=== PATIENT | female | born 1945 | race Caucasian/White ===

== ENCOUNTER 2016-10-26 15:45 | Outpatient (CLI) | payer MEDICARE ==
[2016-10-26 16:22] LABS: ALT (SGPT) 20 U/L (0-55); AST (SGOT) 22 U/L (5-34); Alkaline Phosphatase 49 U/L (40-150); Anion Gap 12 mmol/L (10-20); BUN (Urea Nitrogen) 31 mg/dL (9.8-20.1); Bilirubin, Total 0.2 mg/dL (0.2-1.2); Calc. Creatinine Clearance 0 mL/min (70-130); Calcium 9.1 mg/dL (7.8-10.44); Carbon Dioxide 26 mmol/L (23-31); Chloride 107 mmol/L (98-107); Estimated GFR-MDRD 67; Globulin 2.8 g/dL (2.4-3.5); Protein, Total 6.9 g/dL (5.8-8.1)
[2016-10-26 16:52] LABS: Hematocrit 37.9 % (36.0-47.0); Mean Platelet Volume 6.4 fL (7.4-10.4); Red Blood Cell (RBC) Count 4.07 mill/uL (4.20-5.40); White Blood Cell (WBC) Count 6.8 thou/uL (4.8-10.8)
[2016-10-26 17:18] LABS: Neutrophil 54 % (42-75)
== END 2016-10-26 15:46 ==
LOC: HPCALD 15:45
PROVIDERS: ATTEND Family Medicine
DX: R53.81 Other malaise (principal)
CPT/HCPCS: 36415; 80053; 84443; 85025

== ENCOUNTER 2017-02-15 09:32 | Outpatient (CLI) | payer MEDICARE, OTHER | END 2017-02-15 09:33 | disposition home or self-care (01) | LOC: HPCALD 09:32 | PROVIDERS: ATTEND Physician Assistant | DX: N76.0 Acute vaginitis (principal) | CPT/HCPCS: 87480; 87510; 87660 ==

== ENCOUNTER 2018-06-18 16:22 | Emergency (ER) | payer MEDICARE, OTHER ==
--- NOTE | 2018-06-18 18:43 | CT ---
CT OF THE CERVICAL SPINE 06/18/18 DICTATION CUT OFF POS: HOME
--- NOTE | 2018-06-18 18:46 | CT ---
CT OF THE BRAIN WITHOUT CONTRAST: 06/18/[address] shows normal sized ventricles for age. There is no shift. No intracranial bleeding o r extra-axial hematoma was seen. A small soft tissue laceration or defect is seen in the left posteri or parieto-occipital region. The underlying skull appears normal. There are no skull fractures. The s phenoid sinus is clear as are the mastoid air cells. No intracranial bleeding, mass or edema was foun d. IMPRESSION: No acute intracranial finding. POS: HOME
== END 2018-06-18 17:29 | disposition home or self-care (01) ==
LOC: BURERS 16:22
DX: S06.0X0A Concussion without loss of consciousness, initial encounter (principal); W01.0XXA Fall on same level from slipping, tripping and stumbling without subsequent striking against object, initial encounter
CPT/HCPCS: 70450; 72125

== ENCOUNTER 2019-05-24 14:27 | Emergency (ER) | payer MEDICARE, OTHER ==
[2019-05-24] MEDS ORDERED: AMOXicillin 250 MG CAP ONE (14:46)
== END 2019-05-24 15:03 | disposition home or self-care (01) ==
LOC: BURERS 14:27
DX: S81.852A Open bite, left lower leg, initial encounter (principal); S81.812A Laceration without foreign body, left lower leg, initial encounter; W54.0XXA Bitten by dog, initial encounter
CPT/HCPCS: 99283

== ENCOUNTER 2020-11-10 12:59 | Emergency (ER) | payer MEDICARE, OTHER ==
[2020-11-10] MEDS ORDERED: Amoxicillin/Potassium Clav 875 MG TAB ONE (13:13)
[2020-11-10] MEDS ORDERED: Boostrix 0.5 ML (Tdap) VIAL ONE (13:13)
[2020-11-10] MEDS ORDERED: Bacitracin 1 PK ONE (13:32)
== END 2020-11-10 13:57 | disposition home or self-care (01) ==
LOC: BURERS 12:59
DX: S81.851A Open bite, right lower leg, initial encounter (principal); W55.01XA Bitten by cat, initial encounter
CPT/HCPCS: 90471; 90715

== ENCOUNTER 2021-04-11 11:29 | Emergency (ER) | payer MEDICARE ==
[2021-04-11] MEDS ORDERED: Acetaminophen 325 MG Suppository ONE (12:20)
[2021-04-11] MEDS ORDERED: Acetaminophen 325 MG TAB ONE (12:21)
[2021-04-11] MEDS ORDERED: Bacitracin 1 PK ONE (12:32)
[2021-04-11] MEDS ORDERED: Lidocaine 1% PF 5 ML VIAL ONE (12:37)
== END 2021-04-11 13:40 | disposition home or self-care (01) ==
LOC: BURERS 11:29
DX: S01.81XA Laceration without foreign body of other part of head, initial encounter (principal); S80.02XA Contusion of left knee, initial encounter; W01.0XXA Fall on same level from slipping, tripping and stumbling without subsequent striking against object, initial encounter
CPT/HCPCS: 12013

== ENCOUNTER 2024-02-07 13:06 | Emergency (ER) | payer MEDICARE ==
[2024-02-07] MEDS ORDERED: Metoclopramide HCl 10 MG (2 mL) VIAL ONE (13:46)
[2024-02-07 14:01] LABS: #Basophils 0.1 thou/uL (0.0-0.2); #Lymphocytes 1.7 thou/uL (1.20-3.40); #Monocytes 0.6 thou/uL (0.11-0.59); #Neutrophils 4.9 thou/uL (1.40-6.50); %Basophils 0.7 % (0.0-1.0); %Eosinophils 0.4 % (0.0-10.0); %Lymphocytes 23.5 % (21.0-51.0); %Monocytes 8.2 % (0.0-10.0); %Neutrophils 67.2 % (42.0-75.0); Hematocrit 39.1 % (36.0-47.0); Hemoglobin 12.9 g/dL (12.0-16.0); Mean Corpuscular Hemoglobin 29.4 pg (27.0-31.0); Mean Corpuscular Volume 89.3 fl (78.0-98.0); Mean Platelet Volume 6.7 fL (7.4-10.4); Platelet Count 224 10x3/uL (130-400); RBC Distribution Width 13.2 % (11.5-14.5); Red Blood Cell (RBC) Count 4.38 mill/uL (4.20-5.40); White Blood Cell (WBC) Count 7.2 10x3/uL (4.8-10.8)
[2024-02-07 14:10] LABS: Bilirubin Negative (Negative); Blood, Urine Small (Negative); Clarity Clear (Clear); Glucose, Urine (Dipstick) Negative (Negative); Ketone, Urine Negative (Negative); Leukocyte Negative (Negative); Nitrite Negative (Negative); Protein, Urine (Dipstick) Negative (Neg-Trace); Specific Gravity, Urine 1.015 (1.005-1.030); Urobilinogen 0.2 mg/dL (Less than 2)
[2024-02-07 14:10] LABS: ALT (SGPT) 37 U/L (8-55); AST (SGOT) 38 U/L (5-34); Alkaline Phosphatase 51 U/L (40-110); Anion Gap 14 mmol/L (10-20); BUN (Urea Nitrogen) 14 mg/dL (9.8-20.1); Bilirubin, Total 0.2 mg/dL (0.2-1.2); Calc. Creatinine Clearance 0 mL/min (70-130); Calcium 8.9 mg/dL (7.8-10.44); Carbon Dioxide 24 mmol/L (23-31); Chloride 104 mmol/L (98-107); Estimated GFR 82; Glucose 119 mg/dL (83-110); Potassium 3.8 mmol/L (3.5-5.1); Sodium 138 mmol/L (136-145)
[2024-02-07 14:22] LABS: Bacteria/HPF None Seen HPF (None Seen); CAUTI Indications for Culture Alt mental st,lethar; Squamous Epithelial 0-3 HPF (0-3); WBC/HPF None Seen HPF (0-3)
[2024-02-07 14:23] LABS: Urine Culture Reflex No No
== END 2024-02-07 14:45 | disposition home or self-care (01) ==
LOC: BURERS 13:06
DX: U07.1 COVID-19 (principal)
CPT/HCPCS: 71045; 80053; 81001; 85025; J2765; 36415; 96374

== ENCOUNTER 2024-02-20 15:45 | Emergency (ER) | payer MEDICARE, OTHER ==
[2024-02-20] MEDS ORDERED: Boostrix 0.5 ML (Tdap) VIAL (>/=7 yrs of age) ONE (16:12)
[2024-02-20] MEDS ORDERED: Amoxicillin/Potassium Clav 875 MG TAB ONE (16:12)
== END 2024-02-20 16:25 | disposition home or self-care (01) ==
LOC: BURERS 15:45
DX: S80.811A Abrasion, right lower leg, initial encounter (principal); W14.XXXA Fall from tree, initial encounter; Z23 Encounter for immunization
CPT/HCPCS: 90471; 90715